=== PATIENT | female | born 1990 | race Caucasian/White ===

== ENCOUNTER 2018-08-18 14:39 | Emergency (ER) | payer OTHER, MEDICAID, SELFPAY ==
[2018-08-18 14:43] VITALS: BP 120/69; PULSE 78; RESP 81; TEMP 36.8; O2SAT 100
[2018-08-18 16:18] VITALS: BP 110/73; PULSE 82; RESP 16; TEMP 37; O2SAT 100
--- NOTE | 2018-08-18 16:48 | ED.URI ---
HPI - URI/Sore Throat <SVITLANA Rodriguez - Last Filed: 08/18/18 22:44> General Chief Complaint: Upper Respiratory Symptoms Stated Complaint: Sore throat Time Seen by Provider: 08/18/18 16:41 Source: patient Mode of arrival: ambulatory Limitations: no limitations History of Present Illness HPI Narrative: 28-year-old female with history of hypothyroidism that is a nonsmoker here for complaint of having sore throat for the past 3 days. She states she has had with coworkers at of had similar symptoms. She is tolerating p.o. intake well. No nausea vomiting. No known fevers. Increased pain with swallowing. No acute distress. She is ambulatory into the emergency room. She denies any other concerns or complaints at this timeframe. Related Data Home Medications Medication Instructions Recorded Confirmed ibuprofen 400 mg PO TID #0 06/22/12 Previous Rx's Medication Instructions Recorded amoxicillin 500 mg PO BID #20 tab 08/18/18 Allergies Allergy/AdvReac Type Severity Reaction Status Date / Time ibuprofen [IBUPROFEN] Allergy Intermediate GI BLEEDING Unverified 09/07/17 12:15 Review of Systems <SVITLANA Rodriguez - Last Filed: 08/18/18 22:44> Constitutional Denies chills, Denies fever(s), Denies lethargy and Denies weakness Eyes Denies change in vision, Denies eye discharge, Denies irritation and Denies loss of vision ENT Comments: Sore throat Cardiovascular Denies chest pain, Denies irregular heart rhythm, Denies lightheadedness, Denies palpitations, Denies dyspnea, Denies dyspnea on exertion and Denies orthopnea Respiratory Denies cough, Denies dyspnea, Denies dyspnea on exertion and Denies wheezing Gastrointestinal Gastrointestinal: Denies abdominal pain, Denies change in bowel habits, Denies diarrhea, Denies nausea and Denies vomiting Musculoskeletal Denies back pain, Denies muscle weakness, Denies numbness and Denies tingling Integumentary/Breasts Denies pruritus, Denies erythema, Denies rash and Denies wounds Neurologic Denies confusion, Denies loss of vision, Denies numbness, Denies tingling and Denies weakness Psychiatric Denies anxiety, Denies confusion, Denies depression, Denies homicidal ideation and Denies suicidal ideation Endocrine Denies palpitations Allergic/Immunologic Denies wheezing PFSH <SVITLANA Rodriguez - Last Filed: 08/18/18 22:44> Social History Smoking Status: Never smoker Social History Smoking Status: Never smoker Exam <SVITLANA Rodriguez - Last Filed: 08/18/18 22:44> Initial Vital Signs Initial Vital Signs: Vital Signs Temperature 98.3 F 08/18/18 14:43 Pulse Rate 78 08/18/18 14:43 Respiratory Rate 81 H 08/18/18 14:43 Blood Pressure 120/69 08/18/18 14:43 Pulse Oximetry 100 08/18/18 14:43 Const General: cooperative and well developed Nutritional Appearance: well nourished Orientation: alert, awake, oriented x3 and not confused HENMT Mouth: oral mucosae normal and moist mucous membranes Throat: posterior oropharynx abnormal erythema and exudates Eyes Conjunctivae: conjunctivae normal Sclera: sclerae normal Pupils: PERRL EOM: EOM intact bilaterally Neck Neck: normal visual inspection, trachea midline, No lymphadenopathy, No midline deformity and No JVD Lymphatic: No lymphedema Resp Effort & Inspection: normal respiratory effort, able to speak in complete sentences, no respiratory distress and no use of accessory muscles Auscultation: clear to auscultation bilaterally, no rales, no rhonchi and no wheezes Cardio Rate: regular rate Rhythm: regular rhythm Heart Sounds: no click, no gallops, no murmurs and no rubs Pulses: normal peripheral pulses Skin General: no rashes or lesions noted, No jaundice and No petechiae Neuro General: alert, oriented x3, gait normal and no focal motor deficits Speech: speech normal <Clari Killian DO - Last Filed: 08/19/18 11:11> Initial Vital Signs Initial Vital Signs: Vital Signs Temperature 98.3 F 08/18/18 14:43 Pulse Rate 78 08/18/18 14:43 Respiratory Rate 81 H 08/18/18 14:43 Blood Pressure 120/69 08/18/18 14:43 Pulse Oximetry 100 08/18/18 14:43 Course <SVITLANA Rodriguez - Last Filed: 08/18/18 22:44> Vital Signs - 8 hr 08/18/18 16:18 Temperature 98.6 F Pulse Rate 82 Respiratory Rate 16 Blood Pressure [Right Arm] 110/73 Pulse Oximetry 100 <Clari Killian DO - Last Filed: 08/19/18 11:11> Vital Signs - 8 hr 08/18/18 16:18 Temperature 98.6 F Pulse Rate 82 Respiratory Rate 16 Blood Pressure [Right Arm] 110/73 Pulse Oximetry 100 MDM - URI/Sore Throat <SVITLANA Rodriguez - Last Filed: 08/18/18 22:44> Lab Data Point of Care Testing Rapid Strep A Positive MDM Narrative Medical decision making narrative: Strep test was obtained was positive for strep A. She is placed on amoxicillin. [id number] Tylenol or Motrin as needed for any discomfort. Salt water gargles a few times a day over the next few days to help with inflammation. Plenty of fluids. Follow up with primary care provider. Return emergency room for any worsening symptoms. <Clari Killian DO - Last Filed: 08/19/18 11:11> Lab Data Point of Care Testing Rapid Strep A Positive Discharge Plan Departure Patient Disposition: Home Clinical Impression: Acute streptococcal pharyngitis Discharge Date/Time: 08/18/18 17:08 Interventions: ED Discharge Assessment Last Done: 08/18/18 17:08 Instructions: DI for Strep Throat Activity Restrictions/Additional Instructions: Strep test was obtained was positive for strep pharyngitis. Her placed on amoxicillin an antibiotic use as directed. [id number] Tylenol or Motrin as needed for any discomfort. Salt water gargles a few times a day over the next few days to help with inflammation. Plenty of fluids. Follow up with primary care provider. Return emergency room for any worsening symptoms. Prescriptions: New amoxicillin 500 mg tablet 500 mg PO BID Qty: 20 RF: 0 No Action ibuprofen 400 MG tablet 400 mg PO TID Qty: 0 RF: 0 Referrals: [facility] [Provider Group] Stand Alone Forms: Work Release Note, Work/School Release <Clari Killian DO - Last Filed: 08/19/18 11:11> Cosign ED Attending Cosignature Attestation: I was immediately available in the department for consultation. Documentation has been reviewed. I agree with assessment and plan.
== END 2018-08-18 17:08 | disposition home or self-care (01) ==
PROVIDERS: Emergency Provider Nurse Practitioner Family
DX: J02.0 Streptococcal pharyngitis (principal)
CPT/HCPCS: 87880; 99282; 99283